=== PATIENT | female | born 1950 | race Caucasian/White ===

== ENCOUNTER 2017-04-02 15:49 | Emergency (ER) | payer OTHER ==
[2017-04-02 16:12] VITALS: TEMP 98.6; BMI 23.8
[2017-04-02 16:33] LABS: BASOPHIL 0.6 % (0-2.0); EOSINOPHIL 1.8 % (0-4.5); MCH 28.5 pg (25.7-33.7); MCHC 32.8 g/dl (32.0-36.0); MEAN PLT VOLUME 9.9 fl (7.5-11.1); NEUTROPHILS 54.9 % (42.8-82.8); PLATELET COUNT 175 K/MM3 (134-434); RDW 14.5 % (11.6-15.6); WHITE BLOOD COUNT 9.6 K/mm3 (4.0-10.0)
[2017-04-02 16:56] LABS: URINE APPEARANCE CLEAR; URINE BILIRUBIN NEGATIVE (NEGATIVE); URINE BLOOD NEGATIVE (NEGATIVE); URINE COLOR STRAW; URINE GLUCOSE (UA) NEGATIVE (NEGATIVE); URINE KETONE NEGATIVE (NEGATIVE); URINE LEUK ESTERASE NEGATIVE (NEGATIVE); URINE NITRITE NEGATIVE (NEGATIVE); URINE PROTEIN NEGATIVE (NEGATIVE); URINE UROBILINOGEN NEGATIVE E.U./dl (0.2-1.0)
[2017-04-02 17:10] LABS: ALBUMIN 3.3 g/dl (3.4-5.0); ANION GAP 7 (8-16); BILIRUBIN,TOTAL 0.2 mg/dL (0.2-1.0); CALCIUM 8.6 mg/dL (8.5-10.1); CO2 28 mmol/L (21-32); CREATININE 0.6 mg/dL (0.55-1.02); GLUCOSE,RANDOM 107 mg/dL (74-106); MAGNESIUM 1.7 mg/dL (1.8-2.4); SGOT/AST 13 U/L (15-37); SGPT/ALT 19 U/L (12-78); TOT PROT 6.1 g/dl (6.4-8.2)
[2017-04-02 17:13] LABS: ALK PHOS 114 U/L (45-117); TROPONIN I < 0.02 ng/ml (0.00-0.05)
[2017-04-02] MEDS ORDERED: SODIUM CHLORIDE 1,000 ML IV STA (17:32)
--- NOTE | 2017-04-02 17:32 | PDOC ---
History of Present Illness - General Chief Complaint: Weakness Stated Complaint: LEG WEAKNESS/ EYE COMPLAINT Time Seen by Provider: 04/02/17 16:10 History Source: Patient Exam Limitations: No Limitations - History of Present Illness Initial Comments: 04/02/17 17:26 66-year-old female presents to the ED with complaints of generalized fatigue, weakness, and eye heaviness for the past 2 days. Patient states she feels she is on too many medications for her schizophrenia,, high cholesterol and hypertension. Patient denies chest pain, shortness of breath, fever, chills, dysuria, diarrhea, lower extremity edema, change in appetite, change in weight or recent change in medications. Patient is a resident set [facility] Timing/Duration: 1 week Severity: mild Associated Symptoms: reports: weakness Past History - Travel Traveled outside of the country in the last 30 days: No Close contact w/someone who was outside of country & ill: No - Past Medical History Allergies/Adverse Reactions: Allergies Allergy/AdvReac Type Severity Reaction Status Date / Time No Known Allergies Allergy Verified 04/02/17 16:00 Home Medications: Ambulatory Orders Amlodipine Besylate 5 mg PO DAILY 04/02/17 Aspirin [ASA -] 81 mg PO DAILY 04/02/17 Clonazepam [KlonoPIN] 0.5 mg PO QID 04/02/17 Clozapine 300 mg PO HS 04/02/17 Clozapine [Clozaril -] 50 mg PO TID 04/02/17 Docusate Sodium [Colace -] 100 mg PO DAILY 04/02/17 Gabapentin 200 mg PO TID 04/02/17 Haloperidol [Haldol -] 5 mg PO BID 04/02/17 Tolterodine Tartrate [Detrol -] 4 mg PO DAILY 04/02/17 HTN: Yes Hypercholesterolemia: Yes Psychiatric Problems: Yes (Schizoaffective Disorder) Other medical history: Peripheral Venous stasis - Immunization History Immunization Up to Date: Yes - Psycho/Social/Smoking Cessation Hx Suicidal Ideation: No Smoking History: Never smoked Information on smoking cessation initiated: No Hx Alcohol Use: No Drug/Substance Use Hx: No Substance Use Type: None Patient Lives Alone: No Lives with/in: assisted living Review of Systems - Review of Systems Able to Perform ROS?: No Is the patient limited Danish proficient: No Constitutional: Yes: Weakness HEENTM: No: Symptoms Reported, Eye Pain, Blurred Vision, Tearing Respiratory: No: Symptoms reported Cardiac (ROS): No: Symptoms Reported ABD/GI: No: Symptoms Reported : No: Symptoms Reported Musculoskeletal: No: Symptoms Reported Integumentary: No: Symptoms Reported Neurological: Yes: Weakness. No: Headache, Dizziness *Physical Exam - Vital Signs Last Vital Signs Temp Pulse Resp BP Pulse Ox 98.6 F 95 H 18 115/68 96 04/02/17 16:05 04/02/17 16:05 04/02/17 16:05 04/02/17 16:05 04/02/17 16:05 - Physical Exam General Appearance: Yes: Nourished, Appropriately Dressed. No: Apparent Distress HEENT: positive: EOMI, TONY, TMs Normal, Pharynx Normal (moist). negative: Pale Conjunctivae Neck: positive: Normal Thyroid, Supple Respiratory/Chest: positive: Lungs Clear, Normal Breath Sounds. negative: Respiratory Distress, Accessory Muscle Use Cardiovascular: positive: Regular Rhythm, Regular Rate. negative: Murmur Gastrointestinal/Abdominal: positive: Normal Bowel Sounds, Soft. negative: Tenderness Musculoskeletal: negative: CVA Tenderness Extremity: positive: Normal Capillary Refill. negative: Pedal Edema Integumentary: positive: Normal Color, Warm, Moist Neurologic: positive: Normal Mood/Affect, Motor Strength 5/5 (ambulatory) Heart Score/ECG Review - History History: Slightly suspicious - Electrocardiogram EKG: Normal - Age Age: >/= 65 - Risk Factors Risk Factors Heart Score: Yes Hx Hypercholesterolemia, Yes Hx Hypertension - ECG Intrepretation Rhythm: Regular Rhythm (rate 87.) - QRS Widened: RBBB ED Treatment Course - LABORATORY CBC & Chemistry Diagram: 04/02/17 16:20 04/02/17 16:20 - ADDITIONAL ORDERS Additional order review: Laboratory Results 04/02/17 16:20 Sodium 143 Potassium 3.7 Chloride 108 H Carbon Dioxide 28 Anion Gap 7 L BUN 11 Creatinine 0.6 Creat Clearance w eGFR > 60 Random Glucose 107 H Calcium 8.6 Magnesium 1.7 L Total Bilirubin 0.2 AST 13 L ALT 19 Alkaline Phosphatase 114 Creatine Kinase 76 Troponin I < 0.02 Total Protein 6.1 L Albumin 3.3 L 04/02/17 16:20 RBC 4.47 MCV 87.0 MCHC 32.8 RDW 14.5 MPV 9.9 Neutrophils % 54.9 Lymphocytes % 36.9 D Monocytes % 5.8 Eosinophils % 1.8 D Basophils % 0.6 - RADIOLOGY Radiology Studies Ordered: Category Date Time Status CHEST X-RAY PORTABLE* [RAD] Stat Radiology 04/02/17 16:19 Taken Medical Decision Making - Medical Decision Making 04/02/17 17:35 Patient generalized fatigue requesting a decrease in her medications. Patient arrives with all vital signs mentating well with no other complaints at this time. Patient will have baseline labs done including EKG chest x-ray and urine. Patient also ordered for normal saline bolus secondary to mild tachycardia 95 with a BP of 115/70. 04/02/17 17:36 Laboratory Tests 04/02/17 04/02/17 16:20 16:20 WBC 9.6 Hgb 12.7 Hct 38.9 Neutrophils % 54.9 Sodium 143 Potassium 3.7 Chloride 108 H Carbon Dioxide 28 Anion Gap 7 L BUN 11 Creatinine 0.6 Creat Clearance w eGFR > 60 Random Glucose 107 H Calcium 8.6 Magnesium 1.7 L Total Bilirubin 0.2 AST 13 L ALT 19 Alkaline Phosphatase 114 Creatine Kinase 76 Troponin I < 0.02 chest x-ray neg. Urine pending 04/02/17 18:46 Laboratory Tests 04/02/17 16:25 Urine Ketones Negative Urine Nitrite Negative Ur Leukocyte Esterase Negative Chest x-ray negative for acute findings. Patient will be sent back to [facility] after completion of IV fluids. We'll repeat vitals. *DC/Admit/Observation/Transfer Diagnosis at time of Disposition: Weakness - Discharge Dispostion Disposition: HOME Condition at time of disposition: Good - Patient Instructions Printed Discharge Instructions: DI for Muscle Weakness Additional Instructions: I recommend that you eat small frequent meals throughout the day and follow-up with your physician at [facility] to discuss your medication regimen. Return to ED if symptoms worsen
--- NOTE | 2017-04-02 18:07 | PDOC ---
*Physical Exam - Vital Signs Last Vital Signs Temp Pulse Resp BP Pulse Ox 98.6 F 95 H 18 115/68 96 04/02/17 16:05 04/02/17 16:05 04/02/17 16:05 04/02/17 16:05 04/02/17 16:05 ED Treatment Course - LABORATORY CBC & Chemistry Diagram: 04/02/17 16:20 04/02/17 16:20 - ADDITIONAL ORDERS Additional order review: Laboratory Results 04/02/17 04/02/17 16:25 16:20 Sodium 143 Potassium 3.7 Chloride 108 H Carbon Dioxide 28 Anion Gap 7 L BUN 11 Creatinine 0.6 Creat Clearance w eGFR > 60 Random Glucose 107 H Calcium 8.6 Magnesium 1.7 L Total Bilirubin 0.2 AST 13 L ALT 19 Alkaline Phosphatase 114 Creatine Kinase 76 Troponin I < 0.02 Total Protein 6.1 L Albumin 3.3 L Urine Color Straw Urine Appearance Clear Urine pH 6.0 Urine Protein Negative Urine Glucose (UA) Negative Urine Ketones Negative Urine Blood Negative Urine Nitrite Negative Urine Bilirubin Negative Urine Urobilinogen Negative Ur Leukocyte Esterase Negative 04/02/17 16:20 RBC 4.47 MCV 87.0 MCHC 32.8 RDW 14.5 MPV 9.9 Neutrophils % 54.9 Lymphocytes % 36.9 D Monocytes % 5.8 Eosinophils % 1.8 D Basophils % 0.6 Medical Decision Making - Medical Decision Making 04/02/17 18:07 Patient seen and evaluated with the nurse practitioner. I agree with the overall evaluation, assessment, and management with the following summary of visit: 66-year-old female presents with nonspecific generalized weakness without focal cardiopulmonary, neurological, infectious complaints. Broad workup with labs, urinalysis, EKG, chest x-ray, by mouth trial and dispo accordingly
[2017-04-02 19:41] VITALS: PULSE 78
[2017-04-02 21:18] VITALS: BP 108/67
--- NOTE | 2017-04-03 21:15 | EKG ---
Test Reason : Blood Pressure : / mmHG Vent. Rate : 087 BPM Atrial Rate : 087 BPM P-R Int : 148 ms QRS Dur : 100 ms QT Int : 372 ms P-R-T Axes : 046 -06 024 degrees QTc Int : 447 ms NORMAL SINUS RHYTHM INCOMPLETE RIGHT BUNDLE BRANCH BLOCK CANNOT RULE OUT INFERIOR INFARCT , AGE UNDETERMINED ABNORMAL ECG NO PREVIOUS ECGS AVAILABLE Confirmed by HE DON MD ([id number]) on 04/03/2017 9:15:19 PM Referred By: Confirmed By:HE DON MD
== END 2017-04-02 21:30 | disposition home or self-care (01) ==
LOC: JER 15:49
PROC: 3E0337Z Introduction of Electrolytic and Water Balance Substance into Peripheral Vein, Percutaneous Approach (ICD-10-PCS; principal; 2017-04-02)
DX: M62.81 Muscle weakness (generalized) (principal); I10 Essential (primary) hypertension; E78.00 Pure hypercholesterolemia, unspecified; F20.9 Schizophrenia, unspecified
CPT/HCPCS: 36415; 71010-TC; 80053; 81003; 82550; 83735; 84484; 85025; 93005; 93010; 96360; 99284-25